=== PATIENT | female | born 1945 | race Caucasian/White ===

== ENCOUNTER 2022-01-09 22:01 | Inpatient (IN) | payer OTHER, MEDICARE ==
[2022-01-09 23:10] LABS: ALBUMIN 3.9 g/dl (3.4-5.0); BILIRUBIN,TOTAL 0.8 mg/dl (0.2-1); CALCIUM 9.4 mg/dl (8.5-10); CREATININE 1.8 mg/dl (0.55-1.3); TOT PROT 7.5 g/dl (6.4-8.2)
[2022-01-09 23:36] LABS: INR 1.04 (0.83-1.09)
[2022-01-10] MEDS ORDERED: MAG HYDROX/AL HYDROX/SIMETH -MYLANTA- ORAL SUSPENSION PO ONE (00:51)
[2022-01-10 01:43] LABS: BASO % 0.7 % (0-2.0); MCHC 32.7 g/dl (32.0-36.0); MEAN PLT VOLUME 9.6 fl (7.5-11.1)
[2022-01-10 01:45] LABS: EOS % 1.8 % (0-4.5); HEMATOCRIT 39.7 % (32.4-45.2); LYMPH % 13.1 % (8-40); MCH 29.6 pg (25.7-33.7); MEAN CELL VOLUME 90.6 fl (80-96); MONO % 6.4 % (3.8-10.2); PLATELET COUNT 230 10^3/uL (134-434); RBC 4.38 M/mm3 (3.60-5.2); RDW 14.2 % (11.6-15.6); WHITE BLOOD COUNT 13.1 K/mm3 (4.0-10.0)
[2022-01-10] MEDS ORDERED: MAG HYDROX/AL HYDROX/SIMETH 30 ML UNIT-DOSE CUP ONE (02:15)
[2022-01-10] MEDS ORDERED: MAG HYDROX/AL HYDROX/SIMETH 30 ML UNIT-DOSE CUP PO ONE (02:15)
[2022-01-10 02:56] LABS: EPI CELLS 14 /uL (0-25.1); HYALINE CASTS 0 /uL (0-3.1); PH,URINE 5.5 (5.0-8.0); URINE APPEARANCE TURBID; URINE BACTERIA 1656 /uL (0-1359); URINE BILIRUBIN NEGATIVE (NEGATIVE); URINE COLOR YELLOW; URINE GLUCOSE (UA) NEGATIVE (NEGATIVE); URINE KETONE NEGATIVE (NEGATIVE); URINE LEUK ESTERASE 3+ (NEGATIVE); URINE NITRITE NEGATIVE (NEGATIVE); URINE PROTEIN TRACE (NEGATIVE); URINE RBC 41 /uL (0-23.9); URINE UROBILINOGEN 0.2 mg/dL (0.2-1.0); URINE WBC 3107 /uL (0-25.8)
[2022-01-10] MEDS ORDERED: APIXABAN 5 MG TABLET PO ONE (03:20)
[2022-01-10] MEDS ORDERED: SODIUM CHLORIDE 1,000 ML IV STA (03:26)
[2022-01-10 09:06] LABS: CREATININE 1.6 mg/dl (0.55-1.3); MAGNESIUM 2.1 mg/dL (1.8-2.4)
[2022-01-10] MEDS: LOSARTAN POTASSIUM 50 MG TABLET PO SCH (09:58)
[2022-01-10] MEDS: LEVOTHYROXINE NA 112 MCG TABLET (FP) PO SCH (09:58)
[2022-01-10] MEDS ORDERED: ASPIRIN 81 MG CHEWABLE TABLETS PO SCH (10:00)
[2022-01-10 10:02] LABS: BASO % 0.3 % (0-2.0); EOS % 0.9 % (0-4.5); HEMATOCRIT 36.1 % (32.4-45.2); HEMOGLOBIN 11.9 GM/dL (10.7-15.3); LYMPH % 13.8 % (8-40); MCH 29.7 pg (25.7-33.7); MEAN CELL VOLUME 90.1 fl (80-96); MEAN PLT VOLUME 9.6 fl (7.5-11.1); MONO % 6.2 % (3.8-10.2); NEUT % 78.8 % (42.8-82.8); PLATELET COUNT 210 10^3/uL (134-434); RBC 4.01 M/mm3 (3.60-5.2); RDW 14.1 % (11.6-15.6); WHITE BLOOD COUNT 13.5 K/mm3 (4.0-10.0)
[2022-01-10 14:13] VITALS: BMI 36.9
[2022-01-10] MEDS: metoPROLOL SUCCINATE 25 MG TAB.SR.24H (FP) PO SCH (15:14)
[2022-01-10] MEDS: ACETAMINOPHEN 1000 MG/100 ML BAG IVPB PRN ×2 (15:57→21:36)
[2022-01-10] MEDS: APIXABAN 5 MG TABLET PO SCH ×2 (15:58→21:36)
[2022-01-10 21:23] LABS: CALCIUM 9.4 mg/dl (8.5-10); CREATININE 1.6 mg/dl (0.55-1.3)
[2022-01-10] MEDS ORDERED: BENZOCAINE/MENTH/CETYLPYRD CL 1 EACH LOZENGE MM PRN (22:02)
[2022-01-11] MEDS: LEVOTHYROXINE NA 112 MCG TABLET (FP) PO SCH (06:29)
[2022-01-11] MEDS: ACETAMINOPHEN 1000 MG/100 ML BAG IVPB PRN (08:42)
[2022-01-11 09:06] LABS: ALBUMIN 3.6 g/dl (3.4-5.0); BILIRUBIN,TOTAL 0.9 mg/dl (0.2-1); CREATININE 1.5 mg/dl (0.55-1.3); TOT PROT 6.9 g/dl (6.4-8.2)
[2022-01-11] MEDS ORDERED: DEXTROSE 5%-WATER - 50 ML IVPB ONE (09:12)
[2022-01-11] MEDS ORDERED: cefTRIAXone SODIUM 1 GM VIAL ONE (09:12)
[2022-01-11] MEDS: CEFTRIAXONE 1 GM in DEXTROSE 5%-WATER - 50 ML IVPB SCH (09:25)
[2022-01-11] MEDS: metoPROLOL SUCCINATE 25 MG TAB.SR.24H (FP) PO SCH (09:25)
[2022-01-11] MEDS: LOSARTAN POTASSIUM 50 MG TABLET PO SCH (09:25)
[2022-01-11] MEDS: APIXABAN 5 MG TABLET PO SCH ×2 (09:25→21:30)
[2022-01-11] MEDS ORDERED: ACETAMINOPHEN 1000 MG/100 ML BAG IVPB ONE (21:37)
[2022-01-11] MEDS ORDERED: ACETAMINOPHEN INJECTION 100 ML IVPB ONE (21:41)
[2022-01-12 06:12] VITALS: PULSE 76
[2022-01-12] MEDS: LEVOTHYROXINE NA 112 MCG TABLET (FP) PO SCH (06:18)
[2022-01-12 08:55] VITALS: BP 143/57; TEMP 98.9
[2022-01-12 09:03] LABS: ALBUMIN 3.3 g/dl (3.4-5.0); BILIRUBIN,TOTAL 0.6 mg/dl (0.2-1); CALCIUM 9.3 mg/dl (8.5-10); CREATININE 1.3 mg/dl (0.55-1.3); MAGNESIUM 2.3 mg/dL (1.8-2.4); TOT PROT 6.4 g/dl (6.4-8.2)
[2022-01-12 09:08] LABS: HEMATOCRIT 34.6 % (32.4-45.2); HEMOGLOBIN 11.8 G/dL (10.7-15.3); PLATELET COUNT 191.2 10^3/uL (134-434); WHITE BLOOD COUNT 10.3 10^3/uL (4.0-10.8)
[2022-01-12] MEDS ORDERED: DEXTROSE 5%-WATER - 50 ML IVPB ONE (09:24)
[2022-01-12] MEDS ORDERED: cefTRIAXone SODIUM 1 GM VIAL ONE (09:24)
[2022-01-12] MEDS: metoPROLOL SUCCINATE 25 MG TAB.SR.24H (FP) PO SCH (09:32)
[2022-01-12] MEDS: LOSARTAN POTASSIUM 50 MG TABLET PO SCH (09:32)
[2022-01-12] MEDS: APIXABAN 5 MG TABLET PO SCH (09:32)
[2022-01-12] MEDS: CEFTRIAXONE 1 GM in DEXTROSE 5%-WATER - 50 ML IVPB SCH ×2 (09:32→09:47)
[2022-01-12 10:47] LABS: MCH 30.8 pg (25.7-33.7); MCHC 34.1 g/dl (32.0-36.0); MEAN CELL VOLUME 90.5 fl (80-96); MEAN PLT VOLUME 9.4 fl (7.5-11.1)
== END 2022-01-12 14:01 | disposition home or self-care (01) | DRG 300 ==
LOC: FER 22:01 → FM/S 01-10 05:07 → UNDOADMOB 01-10 05:07 → OBSVTOIN 01-10 12:50 → FM/S 01-10 12:50
PROVIDERS: ADMIT Internal Medicine; ATTEND Nurse Practitioner Acute Care
DX: I82.411 Acute embolism and thrombosis of right femoral vein (principal); N39.0 Urinary tract infection, site not specified; E87.1 Hypo-osmolality and hyponatremia; N18.4 Chronic kidney disease, stage 4 (severe); I24.8 Other forms of acute ischemic heart disease; E03.9 Hypothyroidism, unspecified; K21.9 Gastro-esophageal reflux disease without esophagitis; R73.03 Prediabetes; I12.9 Hypertensive chronic kidney disease with stage 1 through stage 4 chronic kidney disease, or unspecified chronic kidney disease; Z86.711 Personal history of pulmonary embolism
CPT/HCPCS: 36415; 70450-TC; 71045-TC-FY; 74018-TC-FY; 80048; 80053; 81003; 82533; 83735; 83880; 83930; 83935; 84300; 84436; 84443; 84484; 85025; 85610; 87040; 87086; 93005; 93306-TC; 93970-TC; 94761; 97116-GP; 97162-GP; 99285-25; C9803-CS; U0003; U0005

== ENCOUNTER 2023-10-30 18:26 | Inpatient (IN) | payer OTHER, MEDICARE ==
[2023-10-30] MEDS ORDERED: LACTATED RINGERS SOLUTION 1000 ML INFUS.BAG IV ONE (20:16)
[2023-10-30] MEDS ORDERED: METOCLOPRAMIDE HCL INJECTION 10 MG/2 ML VIAL IVPUSH ONE (20:16)
[2023-10-30 20:48] LABS: BASO % 0.2 % (0-2.0); HEMATOCRIT 46.3 % (32.4-45.2); HEMOGLOBIN 15.2 GM/dL (10.7-15.3); LYMPH % 10.6 % (8-40); MCHC 32.8 g/dl (32.0-36.0); MEAN CELL VOLUME 91.5 fl (80-96); MEAN PLT VOLUME 9.3 fl (7.5-11.1); MONO % 6.2 % (3.8-10.2); PLATELET COUNT 252 10^3/uL (134-434); RBC 5.06 M/mm3 (3.60-5.2); RDW 13.5 % (11.6-15.6); WHITE BLOOD COUNT 14.4 K/mm3 (4.0-10.0)
[2023-10-30] MEDS ORDERED: METOCLOPRAMIDE HCL INJECTION 10 MG/2 ML VIAL ONE (20:51)
[2023-10-30 20:54] LABS: INR 1.19 (0.83-1.09); PROTHROMBIN TIME (PATIENT) 13.8 SEC (9.7-13.0)
[2023-10-30 20:57] LABS: ACTIVATED PTT 30.7 SECONDS (25.2-36.5)
[2023-10-30 21:04] LABS: POTASSIUM 3.8 mmol/L (3.5-5.1)
[2023-10-30 21:06] LABS: CALCIUM 10.3 mg/dL (8.5-10.1)
[2023-10-30 21:07] LABS: ALBUMIN 3.6 g/dl (3.4-5.0); BLOOD UREA NITROGEN 23.7 mg/dL (7-18)
[2023-10-30 21:10] LABS: CREATININE 1.4 mg/dL (0.55-1.3)
[2023-10-30 21:12] LABS: BILIRUBIN,TOTAL 0.6 mg/dL (0.2-1)
[2023-10-30 21:41] LABS: EPI CELLS 9 /uL (0-25.1); HYALINE CASTS 0 /uL (0-3.1); PH,URINE 5.5 (5.0-8.0); URINE APPEARANCE CLOUDY; URINE BACTERIA 3589 /uL (0-1359); URINE BILIRUBIN NEGATIVE (NEGATIVE); URINE COLOR YELLOW; URINE GLUCOSE (UA) NEGATIVE (NEGATIVE); URINE KETONE NEGATIVE (NEGATIVE); URINE LEUK ESTERASE 2+ (NEGATIVE); URINE NITRITE NEGATIVE (NEGATIVE); URINE PROTEIN 2+ (NEGATIVE); URINE RBC 11 /uL (0-23.9); URINE UROBILINOGEN 0.2 mg/dL (0.2-1.0); URINE WBC 506 /uL (0-25.8)
[2023-10-30] MEDS ORDERED: CEFTRIAXONE 1,000 MG in DEXTROSE 5%-WATER - 50 ML IVPB ONE (21:47)
[2023-10-30] MEDS ORDERED: CEFTRIAXONE 1 GM/50 ML BAG ONE (22:05)
[2023-10-30] MEDS ORDERED: ACETAMINOPHEN 1000 MG/100 ML BAG IVPB ONE (23:31)
[2023-10-31] MEDS ORDERED: ACETAMINOPHEN INJECTION 100 ML IVPB ONE (00:16)
[2023-10-31 03:33] LABS: LACTIC ACID 2.3 mmol/L (0.4-2.0)
[2023-10-31] MEDS ORDERED: LEVOTHYROXINE NA 100 MCG TABLET (FP) PO SCH (03:45)
[2023-10-31] MEDS ORDERED: LEVOTHYROXINE NA 112 MCG TABLET (FP) PO SCH (03:45)
[2023-10-31] MEDS: SODIUM CHLORIDE 1,000 ML IV SCH ×2 (04:17→20:06)
[2023-10-31] MEDS ORDERED: ACETAMINOPHEN 325 MG TABLET (FP) PO PRN (06:48)
[2023-10-31 07:08] LABS: BASO % 0.1 % (0-2.0); HEMATOCRIT 41.6 % (32.4-45.2); HEMOGLOBIN 13.5 GM/dL (10.7-15.3); LYMPH % 13.3 % (8-40); MCH 29.7 pg (25.7-33.7); MCHC 32.5 g/dl (32.0-36.0); MEAN CELL VOLUME 91.4 fl (80-96); MEAN PLT VOLUME 9.7 fl (7.5-11.1); MONO % 7.6 % (3.8-10.2); PLATELET COUNT 235 10^3/uL (134-434); RBC 4.55 M/mm3 (3.60-5.2); RDW 13.1 % (11.6-15.6); WHITE BLOOD COUNT 15.3 K/mm3 (4.0-10.0)
[2023-10-31 07:23] LABS: POTASSIUM 4.2 mmol/L (3.5-5.1)
[2023-10-31 07:30] LABS: CALCIUM 9.6 mg/dL (8.5-10.1)
[2023-10-31 07:31] LABS: BLOOD UREA NITROGEN 25.1 mg/dL (7-18); MAGNESIUM 2.1 mg/dL (1.8-2.4)
[2023-10-31 07:34] LABS: CREATININE 1.2 mg/dL (0.55-1.3); PHOSPHOROUS 3.3 mg/dL (2.5-4.9)
[2023-10-31 07:35] LABS: BILIRUBIN,TOTAL 0.4 mg/dL (0.2-1); TOT PROT 6.8 g/dl (6.4-8.2)
[2023-10-31] MEDS ORDERED: amLODIPine BESYLATE 5 MG TABLET (FP) PO SCH (10:00)
[2023-10-31] MEDS ORDERED: APIXABAN 5 MG TABLET PO SCH (10:00)
[2023-10-31] MEDS: APIXABAN 5 MG TABLET PO SCH ×3 (10:35→21:35)
[2023-10-31] MEDS ORDERED: PANTOPRAZOLE 20 MG TABLET PO ONE (10:36)
[2023-10-31] MEDS: PANTOPRAZOLE 20 MG TABLET PO SCH (10:36)
[2023-10-31] MEDS ORDERED: amLODIPine BESYLATE 5 MG TABLET (FP) ONE (10:36)
[2023-10-31] MEDS ORDERED: LISINOPRIL 10 MG TABLET PO SCH (10:40)
[2023-10-31] MEDS ORDERED: LISINOPRIL 10 MG TABLET ONE (10:42)
[2023-10-31] MEDS: LOSARTAN POTASSIUM 25 MG TABLET PO SCH (11:05)
[2023-10-31] MEDS ORDERED: LOSARTAN POTASSIUM 25 MG TABLET ONE (11:05)
[2023-10-31 20:49] VITALS: BMI 33.7
[2023-11-01 03:36] VITALS: RESP 18
[2023-11-01] MEDS ORDERED: LEVOTHYROXINE NA 112 MCG TABLET (FP) PO SCH (07:00)
[2023-11-01 07:45] LABS: BASO % 0.1 % (0-2.0); EOS % 0.2 % (0-4.5); HEMATOCRIT 41.3 % (32.4-45.2); HEMOGLOBIN 13.6 GM/dL (10.7-15.3); LYMPH % 20.5 % (8-40); MCH 30.3 pg (25.7-33.7); MEAN PLT VOLUME 9.6 fl (7.5-11.1); MONO % 9.2 % (3.8-10.2); PLATELET COUNT 219 10^3/uL (134-434); RDW 13.3 % (11.6-15.6); WHITE BLOOD COUNT 15.1 K/mm3 (4.0-10.0)
[2023-11-01 08:06] LABS: CALCIUM 9.1 mg/dL (8.5-10.1)
[2023-11-01 08:07] LABS: ALBUMIN 3.2 g/dl (3.4-5.0); BLOOD UREA NITROGEN 27.2 mg/dL (7-18); MAGNESIUM 2.4 mg/dL (1.8-2.4)
[2023-11-01 08:09] LABS: CREATININE 1.1 mg/dL (0.55-1.3); PHOSPHOROUS 2.5 mg/dL (2.5-4.9)
[2023-11-01 08:11] LABS: BILIRUBIN,TOTAL 0.6 mg/dL (0.2-1); TOT PROT 6.8 g/dl (6.4-8.2)
[2023-11-01] MEDS ORDERED: REGADENOSON 0.4 MG/5 ML PRE-FILLED SYRINGE IVPUSH ONE ×2 (08:49→09:15)
[2023-11-01] MEDS ORDERED: POLYETHYLENE GLYCOL (HEALTHYLAX) 3350 17 GM PACKET PO PRN (08:53)
[2023-11-01] MEDS: LOSARTAN POTASSIUM 25 MG TABLET PO SCH (09:22)
[2023-11-01] MEDS: APIXABAN 5 MG TABLET PO SCH (09:22)
[2023-11-01] MEDS: PANTOPRAZOLE 20 MG TABLET PO SCH (09:23)
[2023-11-01] MEDS ORDERED: LISINOPRIL 10 MG TABLET PO SCH (10:00)
[2023-11-01] MEDS: CEFTRIAXONE 1 GM in DEXTROSE 5%-WATER - 50 ML IVPB SCH ×2 (12:22→12:31)
[2023-11-01] MEDS ORDERED: amLODIPine BESYLATE 5 MG TABLET (FP) PO SCH (15:45)
[2023-11-01 19:58] VITALS: BP 153/67; PULSE 80; TEMP 98.8
[2023-11-02] MEDS ORDERED: LEVOTHYROXINE NA 100 MCG TABLET (FP) PO SCH (07:00)
[2023-11-02] MEDS ORDERED: CARVEDILOL 6.25 MG TABLET (FP) PO SCH (10:00)
== END 2023-11-01 20:00 | disposition short-term general hospital (02) | DRG 281 ==
LOC: JER 18:26 → JERBED 21:56 → J4W 10-31 18:31 → OBSVTOIN 11-01 08:55
PROVIDERS: ADMIT Internal Medicine; ATTEND Internal Medicine
DX: I21.4 Non-ST elevation (NSTEMI) myocardial infarction (principal); N12 Tubulo-interstitial nephritis, not specified as acute or chronic; N17.9 Acute kidney failure, unspecified; E03.9 Hypothyroidism, unspecified; I24.89 Other forms of acute ischemic heart disease; I12.9 Hypertensive chronic kidney disease with stage 1 through stage 4 chronic kidney disease, or unspecified chronic kidney disease; N18.9 Chronic kidney disease, unspecified; E78.5 Hyperlipidemia, unspecified; I70.1 Atherosclerosis of renal artery; R79.89 Other specified abnormal findings of blood chemistry; E66.9 Obesity, unspecified; Z68.34 Body mass index [BMI] 34.0-34.9, adult; I44.4 Left anterior fascicular block; B96.1 Klebsiella pneumoniae [K. pneumoniae] as the cause of diseases classified elsewhere; Z86.718 Personal history of other venous thrombosis and embolism; Z86.711 Personal history of pulmonary embolism
CPT/HCPCS: 0241U-QW; 36415; 70450-TC; 71045-TC-FY; 74176-TC; 78452-TC; 80053; 81003; 82550; 83605; 83735; 83835; 84100; 84484; 85025; 85610; 85730; 87086; 87186; 93005; 93010; 93017; 93306-TC; 93975; 99285-25; A9502; G0378; J0131; J2785